=== PATIENT | female | born 1985 | race Caucasian/White ===

== ENCOUNTER 2018-05-14 11:18 | Inpatient (IN) | payer OTHER ==
[~2018-05-14 11:18] MED LIST: ISOVUE-370 76%-LOCM 1 ML ONE
[2018-05-14] MEDS ORDERED: Fentanyl 100 MCG/2 ML VIAL ONE (11:51)
[2018-05-14 12:08] LABS: #Basophils 0.1 thou/uL (0.0-0.2); #Eosinphils 0.3 thou/uL (0.0-0.7); #Lymphocytes 2.2 thou/uL (1.20-3.40); #Monocytes 0.8 thou/uL (0.11-0.59); #Neutrophils 4.5 thou/uL (1.40-6.50); %Eosinophils 3.7 % (0.0-10.0); %Lymphocytes 28.4 % (21.0-51.0); %Monocytes 10.3 % (0.0-10.0); %Neutrophils 56.6 % (42.0-75.0); Hemoglobin 14.2 g/dL (12.0-16.0); Mean Corpuscular HGB CONC 35.8 g/dL (32.0-36.0); Mean Corpuscular Hemoglobin 34.2 pg (27.0-31.0); Mean Corpuscular Volume 95.6 fL (78.0-98.0); Mean Platelet Volume 7.5 fL (7.4-10.4); Platelet Count 261 thou/uL (130-400); Red Blood Cell (RBC) Count 4.16 mill/uL (4.20-5.40); White Blood Cell (WBC) Count 7.9 thou/uL (4.8-10.8)
[2018-05-14 12:40] LABS: Troponin I Less than 0.010 ng/mL (< 0.028)
[2018-05-14 12:43] LABS: CKMB 8.9 ng/mL (0-6.6)
[2018-05-14 12:44] LABS: ALT (SGPT) 80 U/L (8-55); AST (SGOT) 100 U/L (5-34); Albumin 3.6 g/dL (3.5-5.0); Alkaline Phosphatase 140 U/L (40-150); Anion Gap 12 mmol/L (10-20); BUN (Urea Nitrogen) 8 mg/dL (7.0-18.7); Bilirubin, Total 0.4 mg/dL (0.2-1.2); CK (CPK) 2638 U/L (29-168); Calc. Creatinine Clearance 0 mL/min (70-130); Calcium 8.4 mg/dL (7.8-10.44); Carbon Dioxide 23 mmol/L (22-29); Chloride 108 mmol/L (98-107); Estimated GFR-MDRD 89; Globulin 2.8 g/dL (2.4-3.5); Glucose 86 mg/dL (70-105); Lipase 20 U/L (8-78); Potassium 3.7 mmol/L (3.5-5.1); Protein, Total 6.4 g/dL (6.0-8.3); Sodium 139 mmol/L (136-145)
--- NOTE | 2018-05-14 12:56 | CT ---
CT PULMONARY ANGIOGRAM WITH IV CONTRAST AND 3D MIP RECONSTRUCTIONS: 05/14/2018 PROVIDED CLINICAL HISTORY: Chest pain. FINDINGS: There is no evidence for central or segmental pulmonary embolus. The heart, pericardium, and great v essels appear unremarkable. There is no evidence for thoracic lymph node enlargement. The lungs paddy ear free of significant opacity. The airway appears patent and of normal caliber. No pleural fluid or pneumothorax apparent. The visualized portions of the upper abdomen appear unremarkable. The oss eous structures demonstrate no concerning lytic or blastic lesions. IMPRESSION: No evidence for central or segmental pulmonary embolus. POS: JONH
[2018-05-14] MEDS ORDERED: Lorazepam 2 MG/ML VIAL ONE (13:08)
[2018-05-14] MEDS ORDERED: Nitroglycerin 0.4 MG TAB (25 Tab Bottle) PO PRN (14:33)
[2018-05-14] MEDS ORDERED: Acetaminophen 325 MG TAB PO PRN (14:33)
[2018-05-14] MEDS ORDERED: Bisacodyl 5 MG TAB PO PRN (14:33)
[2018-05-14] MEDS ORDERED: Acetaminophen 650 MG Suppository PR PRN (14:33)
[2018-05-14] MEDS ORDERED: Cyclobenzaprine 10 MG TAB PO PRN (14:38)
[2018-05-14] MEDS ORDERED: Cyclobenzaprine 10 MG TAB PO SCH (14:45)
--- NOTE | 2018-05-14 15:19 | HP ---
PRIMARY CARE PROVIDER: Sally Britton PA-C CHIEF COMPLAINT: Back pain. HISTORY OF PRESENT ILLNESS: Ms. Grant is a pleasant 32-year-old lady, who was seen at [facility] on 05/14/2018, following transfer from [place]. She does not have any significant past medical history. She reports having a dental procedure 2 jay hs ago. More recently, she has been promoted to information systems security officer. She reports stress at work. Last night, she started having pain over her left scapula. She describes it as initially dull, subse quently sharp, progressively worsening throughout the night, accompanied by shortness of breath, diap horesis, and nausea, but not by vomiting. She reports that the pain was 10/10 at its worst. This wa s also accompanied by numbness and tingling over her left forearm and tingling over her right hand. She denies having similar symptoms in the past. She presented to the emergency room at [facility] of above complaints. She was subsequently transferred to this facility. By the time I saw her, her pain had resolved. She describes that the pain initially started in the b ack over the scapular region, but subsequently spread around her body towards the front of her chest. REVIEW OF SYSTEMS: All other systems reviewed and found to be negative. PAST MEDICAL HISTORY: None. PAST SURGICAL HISTORY: section and tonsillectomy and adenoidectomy. PSYCHIATRIC HISTORY: Bipolar disorder. SOCIAL HISTORY: The patient drinks alcohol occasionally. She denies recreational drug use. She smo kes 1 pack of cigarettes a day. FAMILY HISTORY: She is a foster child and does not know her family medical history. ALLERGIES: LITHIUM CARBONATE. CURRENT MEDICATIONS: None. PHYSICAL EXAMINATION: GENERAL: Ms. Grant is awake and alert, not in acute distress. VITAL SIGNS: Blood pressure is 140/100, pulse 81, respiratory rate 13, and oxygen saturation 97% on room air. She is afebrile. EYES: No scleral icterus. No conjunctival pallor. ENT: Moist mucosal membranes, no oropharyngeal erythema or exudates. NECK: Supple, nontender, trachea is midline. RESPIRATORY: Accessory muscles of breathing are not active. Chest wall movements are symmetric bila terally. LUNGS: Clear to auscultation without wheeze, rhonchi, or crepitations. CARDIOVASCULAR: S1 and S2 are heard, regular. Peripheral pulses palpable. No carotid bruit, no per icardial rub. ABDOMEN: Soft, nontender, bowel sounds are heard, no hepatomegaly, no splenomegaly. NEUROLOGIC: Cranial nerves II-XII intact. Deep tendon reflexes are 2+. MUSCULOSKELETAL: Power is 5/5 in all 4 extremities. She has reproducible tenderness over the left u pper back. She also appears to have muscle spasm. LYMPHATIC: No cervical lymphadenopathy. SKIN: Multiple tattoos. PSYCHIATRIC: Normal mood, normal affect, patient is oriented to person, place, and time. LABORATORY DATA: Ms. Grant's labs and investigations were reviewed. I reviewed her electrocardiogr am, which shows normal sinus rhythm, no ST changes to suggest an acute coronary syndrome. I also rev iewed her chest x-ray, which does not show any pulmonary infiltrates. She also had CT angiogram of t he chest, which did not reveal any central or segmental pulmonary embolus. She has normal white coun t, normal hemoglobin, normal platelet count, normal sodium, normal potassium, normal creatinine, elev ated AST of 100, elevated ALT of 80, normal total bilirubin, normal alkaline phosphatase, CK at 2638 and decreased from 3493 earlier today, normal troponin I, BNP mildly elevated at 106.5, and normal li pase. ASSESSMENT AND PLAN: Ms. Grant is a pleasant 32-year-old lady, who was seen at [facility] on 05/14/2018. Her problem list includes: 1. Back pain: She has reproducible pain over her upper back as well as over her chest, most likely musculoskeletal. Troponin I is negative, and the second troponin is pending. Patient will be admitt ed to the hospital for telemetry monitoring. For probable musculoskeletal pain, she will receive int ravenous pain medications as well as muscle relaxants. 2. Rhabdomyolysis: The etiology is unclear at this time. We will continue intravenous hydration an d recheck her CK level. 3. Transaminitis: Likely secondary to rhabdomyolysis. Provide intravenous hydration and recheck. 4. Bipolar disorder. Appears to be stable. Many thanks for allowing me to participate in your patient's care. Please feel free to contact me wi th any questions or concerns. LEVEL OF RISK: High. LEVEL OF COMPLEXITY: High.
[2018-05-14 15:22] LABS: Troponin I Less than 0.010 ng/mL (< 0.028)
[2018-05-14] MEDS: Nicotine 21 MG PATCH TD SCH (16:33)
[2018-05-14] MEDS: Sodium Chloride 0.9% 1,000 ML IV SCH (17:32)
[2018-05-14 18:49] LABS: Troponin I Less than 0.010 ng/mL (< 0.028)
[2018-05-15] MEDS: Sodium Chloride 0.9% 1,000 ML IV SCH ×2 (03:43→14:31)
[2018-05-15 05:40] LABS: #Eosinphils 0.2 thou/uL (0.0-0.7); #Lymphocytes 2.4 thou/uL (1.20-3.40); #Monocytes 0.7 thou/uL (0.11-0.59); #Neutrophils 3.2 thou/uL (1.40-6.50); %Basophils 0.7 % (0.0-1.0); %Eosinophils 3.6 % (0.0-10.0); %Lymphocytes 36.3 % (21.0-51.0); %Monocytes 10.7 % (0.0-10.0); %Neutrophils 48.7 % (42.0-75.0); Hemoglobin 12.6 g/dL (12.0-16.0); Mean Corpuscular HGB CONC 34.9 g/dL (32.0-36.0); Mean Corpuscular Hemoglobin 33.7 pg (27.0-31.0); Mean Corpuscular Volume 96.6 fL (78.0-98.0); Mean Platelet Volume 7.9 fL (7.4-10.4); Platelet Count 216 thou/uL (130-400); Red Blood Cell (RBC) Count 3.74 mill/uL (4.20-5.40); White Blood Cell (WBC) Count 6.6 thou/uL (4.8-10.8)
[2018-05-15 06:03] LABS: ALT (SGPT) 62 U/L (8-55); AST (SGOT) 69 U/L (5-34); Albumin 2.9 g/dL (3.5-5.0); Alkaline Phosphatase 107 U/L (40-150); Anion Gap 10 mmol/L (10-20); BUN (Urea Nitrogen) 5 mg/dL (7.0-18.7); Bilirubin, Total 0.2 mg/dL (0.2-1.2); CK (CPK) 1379 U/L (29-168); Calc. Creatinine Clearance 162 mL/min (70-130); Calcium 7.7 mg/dL (7.8-10.44); Carbon Dioxide 20 mmol/L (22-29); Chloride 109 mmol/L (98-107); Estimated GFR-MDRD Greater than 90; Globulin 2.4 g/dL (2.4-3.5); Glucose 102 mg/dL (70-105); Potassium 3.3 mmol/L (3.5-5.1); Protein, Total 5.3 g/dL (6.0-8.3); Sodium 136 mmol/L (136-145)
[2018-05-15] MEDS: Enoxaparin Sodium 40 MG/0.4 ML SYRINGE SC SCH (08:23)
[2018-05-15] MEDS ORDERED: Potassium Chloride 20 MEQ TAB PO SCH (09:00)
[2018-05-15] MEDS ORDERED: Aspirin 325 MG TAB PO SCH (09:00)
[2018-05-15 11:31] LABS: BHCG - Serum Negative (NEGATIVE); Pregs Control Background? CLEAR/WHITE (CLR/WHITE); Pregs Control Bar Appear? YES (CONTROL BAR)
[2018-05-15] MEDS: Ketorolac Tromethamine 30 MG/ML VIAL IVP PRN ×2 (11:40→21:44)
[2018-05-15] MEDS: Nicotine 21 MG PATCH TD SCH (14:31)
[2018-05-15] MEDS: Cyclobenzaprine 10 MG TAB PO SCH ×2 (14:32→20:19)
[2018-05-15] MEDS ORDERED: Hydrocodone-Acetamin 15 ML UDCUP PO SCH (16:45)
[2018-05-15] MEDS: Famotidine 20 MG TAB PO SCH (20:19)
[2018-05-15] MEDS: HYDROcodone/Acetaminophen 5/325 mg Tablet PO PRN (20:19)
--- NOTE | 2018-05-15 21:54 | PDOC.PN ---
- Subjective Encounter Start Date: 05/15/18 Encounter Start Time: 10:30 Patient seen and examined for Rhabdomyolysis with CP. Still has significant Chest radiating to left shoulder pain. No new complaints. No overnight events - Objective MAR Reviewed: Yes Vital Signs & Weight: Vital Signs (12 hours) Temp Pulse Resp BP BP Pulse Ox 05/15/18 19:45 98.8 F 83 20 139/94 H 97 05/15/18 16:51 98.1 F 70 16 163/105 H 98 05/15/18 11:36 97.6 F 75 16 152/97 H 98 Weight Weight 194 lb I&O: 05/14/18 05/15/18 05/16/18 06:59 06:59 06:59 Intake Total 2150 1856 Output Total 1000 Balance 1150 1856 Result Diagrams: 05/16/18 05:22 05/16/18 05:22 Additional Labs: Laboratory Tests 05/15/18 05:22 Potassium 3.3 L AST 69 H ALT 62 H Creatine Kinase 1379 H EKG Reviewed by me: Yes (Tele SR) Phys Exam - Physical Examination Constitutional: NAD Respiratory: no wheezing, no rales, no rhonchi Cardiovascular: RRR, no rub No heaves/pulsations, reproducible tenderness Gastrointestinal: soft, non-tender, no distention, positive bowel sounds Musculoskeletal: no edema Neurological: non-focal, normal sensation, moves all 4 limbs Psychiatric: normal affect, A&O x 3 Dx/Plan - Plan DVT proph w/lovenox, DVT proph w/SCDs IMPRESSION: 1. Chest pain ?Atypical 2. Rhabdomyolysis 3. Hypokalemia 4. Tobacco dep - Counselled 5. Bipolar disorder PLAN: Check Echo Cont IVF Replace Potassium Check Mg AM labs Review of Systems - Review of Systems Respiratory: negative: Cough, Dry, Shortness of Breath, Hemoptysis, SOB with Excertion, Pleuritic Pain, Sputum, Wheezing Cardiovascular: negative: chest pain, palpitations, orthopnea, paroxysmal nocturnal dyspnea, edema, light headedness, other - Medications/Allergies Allergies/Adverse Reactions: Allergies Allergy/AdvReac Type Severity Reaction Status Date / Time lithium Allergy Verified 05/14/18 14:33 Medications: Current Medications Acetaminophen (Tylenol) 650 mg PO Q4H PRN PRN Reason: Headache/Fever or Pain Last Admin: 05/15/18 00:03 Dose: 650 mg Acetaminophen (Tylenol) 650 mg [place] Q4H PRN PRN Reason: Headache/Fever or Pain Hydrocodone Bitart/Acetaminophen ([place] 5/325) 1 tab PO Q4H PRN PRN Reason: Moderate Pain (4-6) Last Admin: 05/15/18 20:19 Dose: 1 tab Aspirin (Ecotrin) 81 mg PO DAILY WANDA Bisacodyl (Dulcolax) 10 mg PO DAILYPRN PRN PRN Reason: Constipation Cyclobenzaprine HCl (Flexeril) 10 mg PO TID [facility] Last Admin: 05/15/18 20:19 Dose: 10 mg Enoxaparin Sodium (Lovenox) 40 mg SC 0900 [facility] Last Admin: 05/15/18 08:23 Dose: 40 mg Famotidine (Pepcid) 20 mg PO BID [facility] Last Admin: 05/15/18 20:19 Dose: 20 mg Sodium Chloride (Normal Saline 0.9%) 1,000 mls @ 100 mls/hr IV .Q10H [facility] Last Admin: 05/15/18 14:31 Dose: 1,000 mls Ketorolac Tromethamine (Toradol) 15 mg IVP Q6H PRN PRN Reason: Pain Stop: 05/20/18 10:50 Last Admin: 05/15/18 21:44 Dose: 15 mg Nicotine (Nicoderm Patch) 21 mg TD Q24HR [facility] Last Admin: 05/15/18 14:31 Dose: 21 mg Nitroglycerin (Nitrostat) 0.4 mg PO Q5MIN PRN PRN Reason: Chest Pain
[2018-05-16] MEDS: Sodium Chloride 0.9% 1,000 ML IV SCH ×2 (00:14→12:28)
[2018-05-16 05:41] LABS: #Basophils 0.1 thou/uL (0.0-0.2); #Eosinphils 0.2 thou/uL (0.0-0.7); #Lymphocytes 2.2 thou/uL (1.20-3.40); #Monocytes 0.7 thou/uL (0.11-0.59); #Neutrophils 3.5 thou/uL (1.40-6.50); %Basophils 0.9 % (0.0-1.0); %Eosinophils 3.3 % (0.0-10.0); %Lymphocytes 32.7 % (21.0-51.0); %Monocytes 10.7 % (0.0-10.0); %Neutrophils 52.4 % (42.0-75.0); Hemoglobin 13.1 g/dL (12.0-16.0); Mean Corpuscular HGB CONC 34.4 g/dL (32.0-36.0); Mean Corpuscular Hemoglobin 33.4 pg (27.0-31.0); Mean Corpuscular Volume 97.1 fL (78.0-98.0); Platelet Count 234 thou/uL (130-400); RBC Distribution Width 11.2 % (11.5-14.5); Red Blood Cell (RBC) Count 3.93 mill/uL (4.20-5.40); White Blood Cell (WBC) Count 6.6 thou/uL (4.8-10.8)
[2018-05-16 06:20] LABS: ALT (SGPT) 63 U/L (8-55); AST (SGOT) 59 U/L (5-34); Alkaline Phosphatase 119 U/L (40-150); Anion Gap 10 mmol/L (10-20); BUN (Urea Nitrogen) 5 mg/dL (7.0-18.7); Bilirubin, Total 0.3 mg/dL (0.2-1.2); CK (CPK) 491 U/L (29-168); Calc. Creatinine Clearance 178 mL/min (70-130); Calcium 8.2 mg/dL (7.8-10.44); Carbon Dioxide 21 mmol/L (22-29); Chloride 109 mmol/L (98-107); Estimated GFR-MDRD Greater than 90; Globulin 2.6 g/dL (2.4-3.5); Glucose 93 mg/dL (70-105); Potassium 3.4 mmol/L (3.5-5.1); Protein, Total 5.6 g/dL (6.0-8.3); Sodium 137 mmol/L (136-145)
[2018-05-16] MEDS: HYDROcodone/Acetaminophen 5/325 mg Tablet PO PRN ×3 (06:38→17:08)
--- NOTE | 2018-05-16 09:10 | RAD ---
LEFT SHOULDER 3 VIEWS: HISTORY: Left shoulder pain. FINDINGS/IMPRESSION: No fracture, dislocation, or bony destruction is identified. POS: SAADIA
[2018-05-16] MEDS: Ketorolac Tromethamine 30 MG/ML VIAL IVP PRN (09:46)
[2018-05-16] MEDS: Cyclobenzaprine 10 MG TAB PO SCH ×3 (09:48→21:14)
[2018-05-16] MEDS: Famotidine 20 MG TAB PO SCH ×2 (09:48→21:13)
[2018-05-16] MEDS: Aspirin 81 mg Enteric Coated Tablet PO SCH (09:48)
[2018-05-16] MEDS: Enoxaparin Sodium 40 MG/0.4 ML SYRINGE SC SCH (09:48)
[2018-05-16] MEDS ORDERED: Potassium Chloride 20 MEQ TAB PO SCH (10:45)
[2018-05-16] MEDS: Lidocaine 5% Patch TD SCH (12:09)
[2018-05-16] MEDS ORDERED: Sodium Chloride 0.9% 1,000 ML IV SCH (13:10)
[2018-05-16] MEDS: Nicotine 21 MG PATCH TD SCH (17:08)
--- NOTE | 2018-05-16 18:05 | PDOC.PN ---
- Subjective Encounter Start Date: 05/16/18 Encounter Start Time: 12:30 Patient seen and examined for CP/Rhabdo. Left shoulder/scapular pain improving. No CP. No overnight events - Objective MAR Reviewed: Yes Vital Signs & Weight: Vital Signs (12 hours) Temp Pulse Pulse Resp BP BP BP 05/16/18 16:55 98.1 F 85 18 140/90 05/16/18 12:18 98.2 F 74 18 137/95 H 05/16/18 09:29 98.2 F 74 16 137/95 H 05/16/18 09:14 70 133/101 H Pulse Ox 05/16/18 16:55 97 05/16/18 12:18 98 05/16/18 09:29 98 05/16/18 09:14 Weight Weight 195 lb 9.6 oz I&O: 05/15/18 05/16/18 05/17/18 06:59 06:59 06:59 Intake Total 2150 3757 Output Total 1000 3500 Balance 1150 257 Result Diagrams: 05/16/18 05:22 05/16/18 05:22 Radiology Reviewed by me: Yes (Left shoulder - negative) EKG Reviewed by me: Yes (Tele SR) Phys Exam - Physical Examination Constitutional: NAD Respiratory: no wheezing, no rhonchi Cardiovascular: RRR, no rub Gastrointestinal: soft, non-tender, positive bowel sounds Musculoskeletal: no edema tenderness over the left shoulder area on sup palpation. Neurological: non-focal, moves all 4 limbs Dx/Plan - Plan PT/OT, DVT proph w/lovenox, DVT proph w/SCDs IMPRESSION: 1. Chest pain ?Atypical - Trop neg, Echo - normal EF 2. Rhabdomyolysis - improving, ?etio - ESR and CRP negative, TSH normal 10/21 3. Hypokalemia 4. Tobacco dep - Counselled 5. Bipolar disorder PLAN: Cont IVF - reduce rate to 50 ml/hr Replace Potassium - 20 meq PO KCL AM labs - Potassium and CK Transfer to medical [facility] in AM if pain controlled Add Lidocaine patch Laboratory Tests 05/16/18 05/16/18 05/16/18 05:22 05:22 05:22 ESR Westergren Less than 1 Potassium 3.4 L Creatine Kinase 491 H C-Reactive Protein Less than 0.50 Review of Systems - Review of Systems Respiratory: negative: Cough, Dry, Shortness of Breath, Hemoptysis, SOB with Excertion, Pleuritic Pain, Sputum, Wheezing Cardiovascular: negative: chest pain, palpitations, orthopnea, paroxysmal nocturnal dyspnea, edema, light headedness, other - Medications/Allergies Allergies/Adverse Reactions: Allergies Allergy/AdvReac Type Severity Reaction Status Date / Time lithium Allergy Verified 05/14/18 14:33 Medications: Current Medications Acetaminophen (Tylenol) 650 mg PO Q4H PRN PRN Reason: Headache/Fever or Pain Last Admin: 05/15/18 00:03 Dose: 650 mg Acetaminophen (Tylenol) 650 mg [place] Q4H PRN PRN Reason: Headache/Fever or Pain Hydrocodone Bitart/Acetaminophen ([place] 5/325) 1 tab PO Q4H PRN PRN Reason: Moderate Pain (4-6) Last Admin: 05/16/18 17:08 Dose: 1 tab Aspirin (Ecotrin) 81 mg PO DAILY [facility] Last Admin: 05/16/18 09:48 Dose: 81 mg Bisacodyl (Dulcolax) 10 mg PO DAILYPRN PRN PRN Reason: Constipation Cyclobenzaprine HCl (Flexeril) 10 mg PO TID [facility] Last Admin: 05/16/18 17:08 Dose: 10 mg Enoxaparin Sodium (Lovenox) 40 mg SC 0900 [facility] Last Admin: 05/16/18 09:48 Dose: 40 mg Famotidine (Pepcid) 20 mg PO BID [facility] Last Admin: 05/16/18 09:48 Dose: 20 mg Sodium Chloride (Normal Saline 0.9%) 1,000 mls @ 50 mls/hr IV .Q20H [facility] Stop: 05/17/18 09:00 Last Admin: 05/16/18 13:44 Dose: Not Given Ketorolac Tromethamine (Toradol) 15 mg IVP Q6H PRN PRN Reason: Pain Stop: 05/20/18 10:50 Last Admin: 05/16/18 09:46 Dose: 15 mg Lidocaine (Lidoderm 5% Patch) 1 patch TD Q24H [facility] Last Admin: 05/16/18 12:09 Dose: 1 patch Miscellaneous Medication (Lidocaine Patch Removal) 1 each TOP 2300 [facility] Morphine Sulfate (Morphine) 2 mg SLOW IVP Q4H PRN PRN Reason: Severe Pain (7-10) Stop: 05/17/18 11:13 Last Admin: 05/16/18 12:09 Dose: 2 mg Nicotine (Nicoderm Patch) 21 mg TD Q24HR [facility] Last Admin: 05/16/18 17:08 Dose: 21 mg Nitroglycerin (Nitrostat) 0.4 mg PO Q5MIN PRN PRN Reason: Chest Pain
[2018-05-16] MEDS ORDERED: Lidocaine Patch Removal 1 EACH TOP SCH (23:00)
[2018-05-17] MEDS: HYDROcodone/Acetaminophen 5/325 mg Tablet PO PRN ×3 (03:09→14:42)
[2018-05-17 05:44] LABS: CK (CPK) 204 U/L (29-168); Potassium 3.3 mmol/L (3.5-5.1)
[2018-05-17] MEDS: Cyclobenzaprine 10 MG TAB PO SCH ×2 (08:02→14:39)
[2018-05-17] MEDS: Famotidine 20 MG TAB PO SCH (08:03)
[2018-05-17] MEDS: Potassium Chloride 20 MEQ TAB PO SCH ×2 (08:06→14:40)
[2018-05-17] MEDS: Aspirin 81 mg Enteric Coated Tablet PO SCH (08:07)
[2018-05-17] MEDS: Enoxaparin Sodium 40 MG/0.4 ML SYRINGE SC SCH (08:07)
[2018-05-17] MEDS: Nicotine 21 MG PATCH TD SCH (08:07)
[2018-05-17] MEDS: Lidocaine 5% Patch TD SCH (10:53)
[2018-05-17 16:35] VITALS: BP 134/89; TEMP 98.2
--- NOTE | 2018-05-18 10:10 | DIS ---
DATE OF ADMISSION: 05/14/2018 DATE OF DISCHARGE: 05/17/2018 DISCHARGE DISPOSITION: Home. FOLLOWUP: Follow up with primary care physician, Sally Britton PA-C, in 1 week. The patient was seen on the day of discharge. Denies any new complaints. No chest pain, shortness o f breath, palpitations. BRIEF HOSPITAL COURSE: The patient is a 32-year-old female who presented to the emergency room on with back/chest pain. Please refer to the history and physical for further details. The patient was admitted to the hospital on the telemetry unit with a diagnosis of chest/back pain wi th rhabdomyolysis. Her CK was 2638 on admission that improved to 204 at discharge. Her troponins we re negative. CRP and ESR were also negative. It is unclear why the patient had rhabdomyolysis. The re was reproducible tenderness over the left upper back. This was managed with IV narcotics as well as lidocaine patch and Toradol. On the day of discharge, the pain has significantly improved. Echoc ardiogram showed left ventricular ejection fraction of 50%-55% with normal diastolic dysfunction, mil d tricuspid regurgitation and mild pulmonic regurgitation. She will continue lidocaine patch for ano ther week or so. She will also continue Flexeril. She also was found to have hypokalemia and will c ontinue potassium supplementation. FINAL DIAGNOSES: 1. Atypical chest discomfort. 2. Normal left ventricular ejection fraction. 3. Rhabdomyolysis of unclear etiology. 4. Reproducible back/chest pain of unclear etiology. ESR, CRP negative. Further workup per PCP. 5. Tobacco dependence. The patient was counseled. 6. Bipolar disorder. Plan of care was discussed with the patient in detail. She stated understanding.
== END 2018-05-17 16:37 | disposition home or self-care (01) | DRG 558 ==
LOC: ERS 11:18 → ERHOLD 14:18 → 2NO 16:01 → T4-B 05-16 18:17
PROVIDERS: ADMIT Internal Medicine; ATTEND Internal Medicine
DX: M62.82 Rhabdomyolysis (principal); F31.9 Bipolar disorder, unspecified; F17.210 Nicotine dependence, cigarettes, uncomplicated
CPT/HCPCS: 36415; 71275; 80053; 82550; 82553; 83690; 83735; 83880; 84132; 84484; 84703; 85025; 85652; 86140; 93005; 93306; 94760; 96361; 96374; 96375; G8978-GP-CI; G8979-GP-CI; G8980-GP-CI; J1650; J1885; J2060; J2270; J3010

== ENCOUNTER 2019-11-05 11:22 | Emergency (ER) | payer OTHER | END 2019-11-05 14:16 | disposition left against medical advice (07) | LOC: ERS 11:22 | DX: Z53.21 Procedure and treatment not carried out due to patient leaving prior to being seen by health care provider (principal) ==

== ENCOUNTER 2021-02-19 08:17 | Emergency (ER) | payer OTHER ==
[2021-02-19] MEDS ORDERED: Ketorolac Tromethamine 30 MG/ML VIAL ONE (08:43)
[2021-02-19] MEDS ORDERED: Acetaminophen 500 MG TAB ONE (09:03)
[2021-02-19] MEDS ORDERED: Lidocaine 1% w/Epinephrine 1:100K 20 ML VIAL ONE ×2 (10:16)
[2021-02-19] MEDS ORDERED: Lidocaine 1% PF 5 ML VIAL ONE ×2 (10:17→10:18)
== END 2021-02-19 10:38 | disposition home or self-care (01) ==
LOC: ERS 08:17 → EEVIPCON 08:17 → ERS 10:38
DX: M25.561 Pain in right knee (principal); M79.651 Pain in right thigh; K58.9 Irritable bowel syndrome, unspecified; F17.210 Nicotine dependence, cigarettes, uncomplicated
CPT/HCPCS: J1885